=== PATIENT | female | born 1960 | race Caucasian/White ===

== ENCOUNTER 2016-04-17 11:07 | Emergency (ER) | payer OTHER ==
[~2016-04-17] VITALS: Ht 167.6 cm; Wt 83.0 kg
[~2016-04-17 11:07] MED LIST: ALBUTEROL0.09 MG/A1 INH; AZITHROMYCIN500 MG PO; KEPPRA500 M1 PO; PREDNISONE 20MG20 MG PO; SYNTHROID88 MCG PO; TRILEPTAL300 M1 PO
--- NOTE | 2016-04-17 12:55 | ED SKIN/ALLERGY COMPLAINT ---
History of Present Illness General Chief Complaint: Allergy Symptoms Stated Complaint: ?ALLERGIC REACTION SINCE THIS AM Source: patient Exam Limitations: no limitations Vital Signs & Intake/Output Vital Signs & Intake/Output Vital Signs Date Time Temp Pulse Resp B/P Pulse O2 O2 Flow FiO2 Ox Delivery Rate 04/17 1353 79 18 142/89 96 Room Air 04/17 1116 98.7 90 20 130/85 98 Room Air ED Intake and Output 04/18 0000 04/17 1200 Intake Total 0 Output Total Balance 0 Intake, Oral 0 Patient 183 lb Weight Allergies Coded Allergies: NO KNOWN ALLERGIES (10/15/15) Reconcile Medications Lamotrigine 200 MG TABLET 1 TAB PO QPM UNKNOWN (Reported) Lamotrigine 25 MG TABLET 1 TAB PO QPM UNKNOWN (Reported) Levetiracetam (Keppra) 500 MG TABLET 1 TAB PO BID SEIZURE stop taking after 2 weeks Levothyroxine Sodium (Synthroid) 88 MCG TABLET 1 TAB PO DAILY AC THYROID ( Reported) Triage Note: PT TO ED ? ALLERGIC REACTION TO LAMICTAL. PT STARTED THE MED 8 DAYS AGO. THIS AM NOTICED RASH TO ARMS AND ABD. DAUGHTER STATES PT IS CONFUSED. WAS UNABLE TO FUNCTION AT WORK THIS AM. Triage Nurses Notes Reviewed? yes HPI: Patient presents for evaluation of a possible allergic reaction to a medication. Patient states she just began a new medication (lamotrigine) as provided by her neurologist. 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 She is currently being evaluated for that possibility. She spoke with her neurologist and was told to discontinue the medication and to follow-up with the neurologist for reevaluation. The patient is currently suffering from a maculopapular rash of the ulnar aspect of both forearms. The patient denies any tongue swelling, shortness of breath or other allergic type symptoms at this time. The patient was brought in today by her daughter who states that she was acting in a confused manner. The patient was treated last year for a low sodium level as a result of another medication she was taking for autoimmune encephalitis. No associated fever or cold symptoms. Past History Travel History Traveled to [place] past 21 day No Medical History Any Pertinent Medical History? see below for history Neurological: complex partial seizure disorder absent seizure tonic clonic seizure EENT: NONE Cardiovascular: NONE Respiratory: NONE Gastrointestinal: NONE Hepatic: NONE Renal: NONE Musculoskeletal: NONE Psychiatric: NONE Endocrine: hypothyroidism Blood Disorders: NONE Cancer(s): NONE HR ASSISTANT/Reproductive: NONE History of MRSA: No History of VRE: No History of CDIFF: No Surgical History Surgical History: TUBAL LIGATION VARICOSE VEINS STRIPPING RIGHT FINGER CYST REMOVAL Psychosocial History Who do you live with Patient/Self Services at Home None What is your primary language Czech Tobacco Use: Never used ETOH Use: denies use Illicit Drug Use: denies illicit drug use Family History Family History, If Any: FATHER (hEART DISEASE). MOTHER (dIABETES MELLITUSpACEMAKERsTROKE). SISTER (hYPOTHYROIDISM). Hx Contributory? No Review of Systems Review of Systems Constitutional: Reports: no symptoms. EENTM: Reports: no symptoms. Respiratory: Reports: no symptoms. Cardiovascular: Reports: no symptoms. GI: Reports: no symptoms. Genitourinary: Reports: no symptoms. Musculoskeletal: Reports: no symptoms. Skin: Reports: see HPI. Neurological/Psychological: Reports: confusion. Hematologic/Endocrine: Reports: no symptoms. Immunologic/Allergic: Reports: no symptoms. All Other Systems: Reviewed and Negative Physical Exam Physical Exam General Appearance: see below Comments: Gen.: Well-nourished, well-developed, no acute respiratory distress. Head: Normocephalic, atraumatic. Eyes: Normal inspection bilaterally, no conjunctival injection Ears: Normal inspection bilaterally Nose: Normal inspection, no runny nose Throat/mouth : Moist mucosa, no oropharyngeal erythema or soft tissue swelling Neck: Supple, full range of motion, no goiter Heart: Regular rate and rhythm, no murmurs rubs or gallops Lungs: Clear to auscultation bilaterally with normal air entry Chest: Nontender Back: Normal range of motion Abdomen: Soft, nontender, nondistended, normal bowel sounds Extremities: Normal range of motion grossly, equal radial pulses, no cyanosis clubbing or edema Neurologic: Cranial nerves grossly intact, speech is clear Skin: warm and dry, echo papular rash of the ulnar aspect of both forearms Psychiatric: Calm, cooperative, no apparent delusions or hallucinations Progress Differential Diagnosis: allergic reaction, anaphylaxis, urticaria Plan of Care: Orders Procedure Date/time Status URINALYSIS 04/17 1254 Complete BASIC METABOLIC PANEL 04/17 1254 Complete Laboratory Tests 04/17/16 1310: Anion Gap 9, Estimated GFR 46 L, BUN/Creatinine Ratio 10.0, Glucose 99, Calcium 9.9, Urine Color YEL, Urine Clarity CLEAR, Urine pH 6.0, Ur Specific Pinson 1.025, Urine Protein NEG, Urine Ketones TRACE H, Urine Nitrite NEG, Urine Bilirubin NEG, Urine Urobilinogen 0.2, Ur Leukocyte Esterase NEG, Ur Microscopic EXAM NOT REQUIRED, Urine Hemoglobin NEG, Urine Glucose NEG Comments: 04/17/2016 3:14:20 PM I updated Val after her urinalysis and after her blood work results. I have now spoken with her neurologist Dr. vargas, who does not want the addition of any seizure medications at this point. She is already taking one antiseizure medication and does not wish to complicate the issue with the initiation of a second antiseizure medication. He recommends discontinuing the Lamictal and following up in his office. Departure Departure Disposition: HOME OR SELF CARE Condition: Stable Clinical Impression Primary Impression: Drug allergy Referrals: FLAQUITO MARIN MD (PCP/Family) Additional Instructions: Follow up with your neurologist as soon as possible for reevaluation and initiation of an alternative antiseizure medication. Please notify your primary care doctor of this emergency department visit and treatment plan. Return if any concerns or sudden worsening. Thank you for choosing the [facility] Emergency [facility] for your care. It was a pleasure to serve you today. Krishna Venegas M.D. [facility] Departure Forms: Customer Survey General Discharge Information
[2016-04-17 13:53] VITALS: BP 142/89
[2016-04-17] MEDS ORDERED: LAMOTRIGINE200 M2 PO (14:12)
[2016-04-17] MEDS ORDERED: LAMOTRIGINE25 M3 PO (14:14)
[2016-04-17] MEDS ORDERED: KEPPRA500 M1 PO (15:08)
== END 2016-04-17 15:26 ==
LOC: ERH 11:07
DX: T50.991A Poisoning by other drugs, medicaments and biological substances, accidental (unintentional), initial encounter (principal)
CPT/HCPCS: 81003